=== PATIENT | female | born 1950 | race Caucasian/White ===

== ENCOUNTER 2018-01-17 13:01 | Emergency (ER) | payer BC, OTHER ==
[~2018-01-17] VITALS: Ht 162.6 cm; Wt 113.4 kg
[2018-01-17 13:04] VITALS: BP 152/71
--- NOTE | 2018-01-17 13:09 | NUR ---
PT AMBULATED TO ER BED 02
--- NOTE | 2018-01-17 13:34 | NUR ---
PATIENT IS A 67 YO FEMALE BIB SELF FOR EPIGASTRIC PAIN FOR SEVERAL DAYS, AWAKE AND ALERT ABLE TO AMBULATE TO BED 2 .
[2018-01-17] MEDS ORDERED: FAMOTIDINE 20 MG/2 ML VIAL IVP ONE (14:10)
[2018-01-17] MEDS ORDERED: MORPHINE SULFATE 2 MG/ML SYR IVP ONE (14:10)
[2018-01-17] MEDS ORDERED: METOCLOPRAMIDE 10 MG/2 ML INJ VIAL IVP ONE (14:10)
[2018-01-17] MEDS ORDERED: GLYCOPYRROLATE 0.2 MG/ML VIAL IV ONE (14:10)
[2018-01-17] MEDS ORDERED: NACL 0.9% 1,000 ML IV SCH (14:10)
--- NOTE | 2018-01-17 14:11 | NUR ---
PT LAYING IN BED, IN NAD. SON AT BEDSIDE. IV FLUIDS INFUSING WELL TO RT AC. VSS.
[2018-01-17 14:50] LABS: BASOPHILS % (AUTO) 0.9 % (0.0-2.0); EOSINOPHILS # (AUTO) 0.1 K/uL (0-0.4); EOSINOPHILS % (AUTO) 1.6 % (0.0-4.0); HEMATOCRIT 35.3 % (36-48); HEMOGLOBIN 12.1 g/dL (12.0-16.0); LYMPHOCYTES # (AUTO) 1.3 K/uL (2.5-16.5); LYMPHOCYTES % (AUTO) 24.1 % (20.5-51.1); MEAN CORPUSCULAR HEMOGLOBIN 31 pg (27-31); MEAN CORPUSCULAR HGB CONC 34 g/dL (33-37); MEAN CORPUSCULAR VOLUME 89.6 fL (80-94); MONOCYTES # (AUTO) 0.4 K/uL (0.8-1.0); MONOCYTES % (AUTO) 8.1 % (1.7-9.3); NEUTROPHILS # (AUTO) 3.5 K/uL (1.8-7.7); NEUTROPHILS % (AUTO) 65.3 % (42.2-75.2); PLATELET COUNT (AUTO) 217 K/uL (140-450); RED BLOOD CELL COUNT(AUTO) 3.94 MIL/uL (4.20-5.40); RED CELL DISTRIBUTION WIDTH 14.4 % (11.6-13.7); WHITE BLOOD COUNT (AUTO) 5.3 K/uL (4.8-10.8)
[2018-01-17 15:00] LABS: APPEARANCE,URINE CLEAR (CLEAR); BILIRUBIN,URINE NEGATIVE (NEGATIVE); BLOOD, URINE TRACE-L (NEGATIVE); LEUKOCYTE ESTERASE ,URINE 1+ (NEGATIVE); NITRITE, URINE NEGATIVE (NEGATIVE); PH,URINE 6.5 (5.0-9.0); UGLUCOSE NEGATIVE (NEGATIVE)
[2018-01-17 15:05] LABS: COLOR,URINE STRAW (YELLOW)
[2018-01-17 15:12] LABS: ANION GAP 14.1 (8-16); CARBON DIOXIDE 27.1 mmol/L (21-32); CREATININE 0.9 mg/dL (0.6-1.3); POTASSIUM 4.2 mmol/L (3.5-5.1)
[2018-01-17 15:18] LABS: ALBUMIN 3.8 g/dL (3.4-5.0); TOTAL BILIRUBIN 0.4 mg/dL (0.0-1.0)
[2018-01-17 15:20] LABS: RBC,URINE 3-10 (FEW) /HPF (0-5); WBC,URINE 6-15 (FEW) /HPF (0-5)
--- NOTE | 2018-01-17 16:03 | NUR ---
PT REPORTS FEELING BETTER, PAIN DECREASED TO 2/10 AT THIS TIME. DENIES NAUSEA. PT REQUESTING TO BE DISCHARGED ALREADY. DR SAPP INFORMED.
[2018-01-17] MEDS ORDERED: LEVOFLOXACIN 500 MG/D5W PREMIX 100 ML IV ONE (16:15)
[2018-01-17 17:08] VITALS: BP 148/70
--- NOTE | 2018-01-17 17:27 | NUR ---
Patient discharged with v/s stable. Written and verbal after care instructions given and explained. Patient alert, oriented and verbalized understanding of instructions. Ambulatory with steady gait. All questions addressed prior to discharge. ID band removed. Patient advised to follow up with PMD. Rx of PEPCID, REGLAN, given. Patient educated on indication of medication including possible reaction and side effects. Opportunity to ask questions provided and answered.
== END 2018-01-17 17:27 | disposition home or self-care (01) ==
LOC: MED 13:01
DX: E86.0 Dehydration (principal); N39.0 Urinary tract infection, site not specified; R10.13 Epigastric pain; M54.9 Dorsalgia, unspecified; M54.2 Cervicalgia; I10 Essential (primary) hypertension; Z88.8 Allergy status to other drugs, medicaments and biological substances
CPT/HCPCS: 36415; 74176; 80053; 81001; 81025; 82150; 83690; 85025; 87086; 96361; 96365; 96375; 99285; J1956; J2765; J3490; J7030; J2270

== ENCOUNTER 2019-01-21 17:57 | Emergency (ER) | payer OTHER ==
[~2019-01-21] VITALS: Ht 162.6 cm; Wt 114.1 kg
[2019-01-21 18:18] VITALS: BP_SYST 153; BP_SYST 195; BP_DIAS 79
--- NOTE | 2019-01-21 18:26 | NUR ---
PT PROVIDING URINE SAMPLE AT THIS TIME, AND THEN GOING TO AMBULATE TO LOBBY. VSS.
--- NOTE | 2019-01-21 18:48 | NUR ---
PT AMBULATED TO ER BED 10
--- NOTE | 2019-01-21 18:50 | NUR ---
PATIENT PRESENTS TO ED WITH C/O EPIGASTRIC PAIN WITH NAUSEA, NO FEVER OR VOMITING X 1 WEEK. PAIN 5/10. SKIN IS PINK/WARM/DRY; AAOX4 WITH EVEN AND STEADY GAIT; LUNGS CLEAR BL; HR EVEN AND REGULAR; PATIENT POSITIONED FOR COMFORT; HOB ELEVATED; BEDRAILS UP X2; BED DOWN. ER MD TO EVALUATE PT.
[2019-01-21] MEDS ORDERED: LISI-420 PO (18:56)
[2019-01-21] MEDS ORDERED: OMEP-113 PO (18:56)
[2019-01-21] MEDS ORDERED: CARV6.252 PO (18:56)
--- NOTE | 2019-01-21 19:12 | NUR ---
BEDSIDE REPORT GIVEN TO RN NICOL. PT STABLE AT THIS TIME.
--- NOTE | 2019-01-21 19:13 | NUR ---
REPORT FROM SONIYA PAYAN. ASSUMED CARE OF PT.
[2019-01-21] MEDS ORDERED: DICYCLOMINE HCL LIQUID 20 MG, ALUMINUM HYD/MAG/SIMETHICONE 30 ML, LIDOCAINE VISCOUS 2% ... PO ONE ×3 (19:35)
[2019-01-21 19:49] LABS: BASOPHILS % (AUTO) 0.5 % (0.0-2.0); EOSINOPHILS # (AUTO) 0.1 K/uL (0-0.4); EOSINOPHILS % (AUTO) 1.9 % (0.0-4.0); HEMATOCRIT 31.7 % (36-48); HEMOGLOBIN 10.9 g/dL (12.0-16.0); LYMPHOCYTES # (AUTO) 1.4 K/uL (2.5-16.5); MEAN CORPUSCULAR HEMOGLOBIN 31 pg (27-31); MEAN CORPUSCULAR HGB CONC 35 g/dL (33-37); MEAN CORPUSCULAR VOLUME 89.3 fL (80-94); MONOCYTES # (AUTO) 0.5 K/uL (0.8-1.0); MONOCYTES % (AUTO) 8.8 % (1.7-9.3); NEUTROPHILS # (AUTO) 3.6 K/uL (1.8-7.7); NEUTROPHILS % (AUTO) 63.8 % (42.2-75.2); PLATELET COUNT (AUTO) 263 K/uL (140-450); RED BLOOD CELL COUNT(AUTO) 3.54 MIL/uL (4.20-5.40); RED CELL DISTRIBUTION WIDTH 13.5 % (11.6-13.7); WHITE BLOOD COUNT (AUTO) 5.7 K/uL (4.8-10.8)
[2019-01-21 19:50] LABS: APPEARANCE,URINE CLEAR (CLEAR); BILIRUBIN,URINE NEGATIVE (NEGATIVE); BLOOD, URINE NEGATIVE (NEGATIVE); COLOR,URINE YELLOW (YELLOW); LEUKOCYTE ESTERASE ,URINE TRACE (NEGATIVE); NITRITE, URINE NEGATIVE (NEGATIVE); UGLUCOSE NEGATIVE (NEGATIVE)
[2019-01-21 20:00] LABS: RBC,URINE 0 /HPF (0-5)
[2019-01-21 20:00] LABS: ANION GAP 11.5 (8-16); CREATININE 0.9 mg/dL (0.6-1.3); POTASSIUM 3.5 mmol/L (3.5-5.1)
[2019-01-21 20:07] LABS: ALBUMIN 3.5 g/dL (3.4-5.0); TOTAL BILIRUBIN 0.6 mg/dL (0.0-1.0)
--- NOTE | 2019-01-21 20:08 | NUR ---
PT REPORTS SOME RELIEF OF PAIN AFTER GI COCKTAIL ADMIN. WILL CONTINUE TO ASSESS.
[2019-01-21] MEDS ORDERED: NACL 0.9% 1,000 ML IV ONE (20:25)
--- NOTE | 2019-01-21 21:41 | NUR ---
NS BOLUS REMAINS INFUSING. NO NEW COMPLAINTS OF PAIN AT THIS TIME. WILL CONTINUE TO ASSESS AND MONITOR.
--- NOTE | 2019-01-21 21:51 | NUR ---
NS INFUSION COMPLETE. PT AMBULATORY TO RESTROOM WITHOUT ASSIST.
[2019-01-21 21:57] LABS: ANION GAP 11.7 (8-16); CARBON DIOXIDE 25.8 mmol/L (21-32); CREATININE 0.9 mg/dL (0.6-1.3); POTASSIUM 3.5 mmol/L (3.5-5.1)
--- NOTE | 2019-01-21 22:07 | NUR ---
IV removed, catheter intact and site benign. Applied folded 4x4 gauze and tape to stop bleeding.
[2019-01-21 22:18] VITALS: BP 145/72
--- NOTE | 2019-01-21 22:19 | NUR ---
Patient discharged with v/s stable. Written and verbal after care instructions given and explained. Patient alert, oriented and verbalized understanding of instructions. Ambulatory with steady gait. All questions addressed prior to discharge. ID band removed. Patient advised to follow up with PMD. Rx of MYLANTA given. Patient educated on indication of medication including possible reaction and side effects. Opportunity to ask questions provided and answered.
== END 2019-01-21 22:19 | disposition home or self-care (01) ==
LOC: MED 17:57
DX: R10.13 Epigastric pain (principal); E86.0 Dehydration; K21.9 Gastro-esophageal reflux disease without esophagitis; I10 Essential (primary) hypertension; Z79.899 Other long term (current) drug therapy; Z88.6 Allergy status to analgesic agent
CPT/HCPCS: 36415; 71045; 80048; 80053; 81001; 83690; 84484; 85025; 87086; 93005; 96360; 99284; J7030; Q0092

== ENCOUNTER 2019-01-23 10:39 | Emergency (ER) | payer OTHER ==
[~2019-01-23] VITALS: Ht 160 cm; Wt 113.4 kg
[~2019-01-23 10:39] MED LIST: CARV6.252 PO; LISI-420 PO; OMEP-113 PO
[2019-01-23 10:46] VITALS: BP 142/80
--- NOTE | 2019-01-23 10:48 | NUR ---
Patient ambulated to bed 3. RN evaluating patient at bedside.
--- NOTE | 2019-01-23 11:26 | NUR ---
PT C/O LOWER ABDOMINAL PAIN RADIATES TO THE LEFT LOWER BACK PAIN ( 2/10) AT THIS TIME, NAUSEA FOR 2 DAYS. DENIES VOMITING AND DIARRHEA. DENIES INJURY.TRAUMA. PT WAS HERE ON THRUSDAY (JANUARY 21, 2019) FOR STOMACH PAIN. SKIN IS PINK/WARM/DRY; AAOX4 WITH EVEN AND STEADY GAIT; PT DENIES ANY FEVER, CP, SOB, OR COUGH AT THIS TIME; VSS; PATIENT POSITIONED FOR COMFORT; HOB ELEVATED; BEDRAILS UP X1; BED DOWN. ER MD MADE AWARE OF PT STATUS. SON IS AT BEDSIDE.
--- NOTE | 2019-01-23 11:28 | NUR ---
Dr. Armstrong evaluating patient at bedside.
[2019-01-23] MEDS ORDERED: ONDANSETRON 4 MG/2 ML VIAL IVP ONE (11:35)
[2019-01-23] MEDS ORDERED: KETOROLAC 15 MG/ML VIAL IVP ONE (11:35)
--- NOTE | 2019-01-23 12:01 | NUR ---
PT REFUSED TO TAKE TORADOL. 30MG OF TORADOL WAS NOT GIVEN TO THE PT AND RETURNED.
[2019-01-23] MEDS ORDERED: NACL 0.9% 1,000 ML IV ONE (12:05)
[2019-01-23 12:08] LABS: BASOPHILS % (AUTO) 0.8 % (0.0-2.0); EOSINOPHILS # (AUTO) 0.1 K/uL (0-0.4); EOSINOPHILS % (AUTO) 2.1 % (0.0-4.0); HEMATOCRIT 32.5 % (36-48); HEMOGLOBIN 11.3 g/dL (12.0-16.0); LYMPHOCYTES # (AUTO) 1.2 K/uL (2.5-16.5); LYMPHOCYTES % (AUTO) 24.3 % (20.5-51.1); MEAN CORPUSCULAR HEMOGLOBIN 31 pg (27-31); MEAN CORPUSCULAR HGB CONC 35 g/dL (33-37); MEAN CORPUSCULAR VOLUME 89.9 fL (80-94); MONOCYTES # (AUTO) 0.4 K/uL (0.8-1.0); NEUTROPHILS # (AUTO) 3.1 K/uL (1.8-7.7); NEUTROPHILS % (AUTO) 63.8 % (42.2-75.2); PLATELET COUNT (AUTO) 281 K/uL (140-450); RED BLOOD CELL COUNT(AUTO) 3.61 MIL/uL (4.20-5.40); RED CELL DISTRIBUTION WIDTH 13.9 % (11.6-13.7); WHITE BLOOD COUNT (AUTO) 4.8 K/uL (4.8-10.8)
[2019-01-23 12:10] LABS: ANION GAP 14.8 (8-16); CARBON DIOXIDE 25.4 mmol/L (21-32); CREATININE 0.9 mg/dL (0.6-1.3); POTASSIUM 4.2 mmol/L (3.5-5.1)
--- NOTE | 2019-01-23 12:24 | NUR ---
Dr. Armstrong re-evaluating patient at bedside.
[2019-01-23 12:38] VITALS: BP 123/53
--- NOTE | 2019-01-23 12:39 | NUR ---
Patient discharged with v/s stable. Written and verbal after care instructions given and explained. Patient alert, oriented and verbalized understanding of instructions. Ambulatory with steady gait. All questions addressed prior to discharge. ID band removed. Patient advised to follow up with PMD. Rx of zofran odt given. Patient educated on indication of medication including possible reaction and side effects. Opportunity to ask questions provided and answered.
== END 2019-01-23 12:38 | disposition home or self-care (01) ==
LOC: MED 10:39
DX: M54.5 Low back pain (principal); E87.1 Hypo-osmolality and hyponatremia; R11.0 Nausea; I10 Essential (primary) hypertension; Z98.890 Other specified postprocedural states; Z88.6 Allergy status to analgesic agent; Z79.899 Other long term (current) drug therapy
CPT/HCPCS: 36415; 80048; 81002; 85025; 96374; 99283; J2405; J1885

== ENCOUNTER 2019-02-06 13:58 | Emergency (ER) | payer OTHER ==
[~2019-02-06] VITALS: Ht 160 cm; Wt 112.0 kg
[2019-02-06 14:05] VITALS: BP 141/84
--- NOTE | 2019-02-06 14:45 | NUR ---
PT AMBULATED TO ER BED 07
--- NOTE | 2019-02-06 14:50 | NUR ---
C/O ABDOMINAL PAIN X3 WKS. + NAUSEA, POOR APPETITE. HX OF HTN, H.PYLORI. . DENIES V/D; SKIN IS PINK/WARM/DRY; AAOX4 WITH EVEN AND STEADY GAIT; LUNGS CLEAR BL; HR EVEN AND REGULAR; PT DENIES ANY FEVER, CP, SOB, OR COUGH AT THIS TIME; PATIENT STATES PAIN OF 6/10 AT THIS TIME; VSS; PATIENT SITTING IN BED. BED DOWN. ER MD MADE AWARE OF PT STATUS.
[2019-02-06] MEDS ORDERED: NACL 0.9% 1,000 ML IV ONE (14:54)
[2019-02-06] MEDS ORDERED: ONDANSETRON 4 MG/2 ML VIAL IVP ONE (14:55)
--- NOTE | 2019-02-06 14:56 | NUR ---
pt to ct scan via wheelchair.
[2019-02-06 15:09] LABS: BILIRUBIN,URINE NEGATIVE (NEGATIVE); BLOOD, URINE NEGATIVE (NEGATIVE); COLOR,URINE YELLOW (YELLOW); LEUKOCYTE ESTERASE ,URINE 1+ (NEGATIVE); NITRITE, URINE NEGATIVE (NEGATIVE); PH,URINE 7.5 (5.0-9.0); UGLUCOSE NEGATIVE (NEGATIVE)
[2019-02-06 15:11] LABS: APPEARANCE,URINE HAZY (CLEAR)
[2019-02-06 15:14] LABS: RBC,URINE 0-5 /HPF (0-5)
[2019-02-06 15:33] LABS: BASOPHILS % (AUTO) 0.6 % (0.0-2.0); EOSINOPHILS # (AUTO) 0.1 K/uL (0-0.4); EOSINOPHILS % (AUTO) 2.2 % (0.0-4.0); HEMOGLOBIN 11.3 g/dL (12.0-16.0); LYMPHOCYTES # (AUTO) 1.3 K/uL (2.5-16.5); LYMPHOCYTES % (AUTO) 25.3 % (20.5-51.1); MEAN CORPUSCULAR HEMOGLOBIN 31 pg (27-31); MEAN CORPUSCULAR HGB CONC 34 g/dL (33-37); MEAN CORPUSCULAR VOLUME 90.3 fL (80-94); MONOCYTES # (AUTO) 0.5 K/uL (0.8-1.0); MONOCYTES % (AUTO) 10.1 % (1.7-9.3); NEUTROPHILS # (AUTO) 3.1 K/uL (1.8-7.7); NEUTROPHILS % (AUTO) 61.8 % (42.2-75.2); PLATELET COUNT (AUTO) 281 K/uL (140-450); RED BLOOD CELL COUNT(AUTO) 3.66 MIL/uL (4.20-5.40); RED CELL DISTRIBUTION WIDTH 13.7 % (11.6-13.7)
--- NOTE | 2019-02-06 15:33 | NUR ---
Dr. Holley evaluating patient at bedside.
[2019-02-06] MEDS ORDERED: ALUMINUM HYD/MAG/SIMETHICONE 30 ML UDC PO ONE (15:40)
[2019-02-06] MEDS ORDERED: MORPHINE SULFATE 4 MG/ML SYR IVP ONE (15:40)
[2019-02-06 15:41] LABS: ANION GAP 12.5 (8-16); CARBON DIOXIDE 29.5 mmol/L (21-32); CREATININE 0.9 mg/dL (0.6-1.3)
[2019-02-06 15:47] LABS: ALBUMIN 3.9 g/dL (3.4-5.0); TOTAL BILIRUBIN 0.6 mg/dL (0.0-1.0)
[2019-02-06 16:50] VITALS: BP 142/63
--- NOTE | 2019-02-06 16:50 | NUR ---
Patient discharged with v/s stable. Written and verbal after care instructions given and explained. Patient alert, oriented and verbalized understanding of instructions. Ambulatory with steady gait. All questions addressed prior to discharge. ID band removed. Patient advised to follow up with PMD. Rx of FLAHYL, TETRACYCLINE, LANSOPRAZOLE given. Patient educated on indication of medication including possible reaction and side effects. Opportunity to ask questions provided and answered.
== END 2019-02-06 16:50 | disposition home or self-care (01) ==
LOC: MED 13:58
DX: E87.1 Hypo-osmolality and hyponatremia (principal); N39.0 Urinary tract infection, site not specified; R10.13 Epigastric pain; I10 Essential (primary) hypertension; Z79.899 Other long term (current) drug therapy; Z88.6 Allergy status to analgesic agent
CPT/HCPCS: 36415; 74176; 80053; 81001; 81025; 83690; 85025; 87086; 96374; 96375; 99284; J2270; J2405; J7030